=== PATIENT | female | born 1990 | race Caucasian/White ===

== ENCOUNTER 2021-04-21 16:12 | Emergency (ER) | payer OTHER ==
[~2021-04-21] VITALS: Ht 139.7 cm; Wt 50.0 kg
[2021-04-21 17:40] VITALS: BP 114/76
== END 2021-04-21 17:40 | disposition home or self-care (01) ==
LOC: ER 16:12
DX: S39.012A Strain of muscle, fascia and tendon of lower back, initial encounter (principal); S50.11XA Contusion of right forearm, initial encounter; S20.211A Contusion of right front wall of thorax, initial encounter; R51.9 Headache, unspecified; V43.62XA Car passenger injured in collision with other type car in traffic accident, initial encounter; Y93.89 Activity, other specified; Y92.488 Other paved roadways as the place of occurrence of the external cause; Y99.8 Other external cause status

== ENCOUNTER 2021-06-13 08:46 | Emergency (ER) | payer OTHER ==
[~2021-06-13] VITALS: Ht 157.5 cm; Wt 50.8 kg
[2021-06-13 09:19] LABS: ABSOLUTE NEUTROPHILS 3.5 thou/uL (1.4-8.2); EOSINOPHILS 2.6 % (0.0-3.0); HEMATOCRIT 35.6 % (37.0-47.0); HEMOGLOBIN 11.9 gm/dL (12.0-15.0); LYMPHOCYTES 44.6 % (24.0-44.0); MCH 27.4 pg (26.0-34.0); MCHC 33.4 g/dL (28.0-37.0); MCV 82.1 fL (80.0-100.0); MONOCYTES 7.5 % (1.0-8.0); PLATELET COUNT 345 thou/uL (150-400); POLYS 44.3 % (36.0-66.0); RBC 4.34 mil/uL (4.20-5.00); RDW 13.5 % (10.5-14.5)
[2021-06-13 09:31] LABS: ANION GAP 4 mmol/L (7-16); APTT 24.7 Seconds (24.5-32.8); BUN 9 mg/dL (7-18); CALCIUM 8.8 mg/dL (8.5-10.1); CHLORIDE 105 mmol/L (98-107); CO2 28 mmol/L (21-32); CREATININE 0.8 mg/dL (0.6-1.0); GLUCOSE 91 mg/dL (74-106); POTASSIUM 4.1 mmol/L (3.5-5.1); PROTIME 10.2 Seconds (9.3-11.4); SODIUM 137 mmol/L (136-145)
[2021-06-13 09:35] LABS: ALBUMIN 3.5 g/dL (3.4-5.0); SGOT 24 U/L (15-37); SGPT 21 U/L (14-59); TOTAL BILIRUBIN 0.4 mg/dL (0.2-1.0); TROPONIN-I <0.06 ng/mL (<0.06)
--- NOTE | 2021-06-13 10:36 | EKG ---
[address] [address] ELECTROCARDIOGRAM REPORT Name: SHERLYN HILL Room #: [facility]#: [id number] Admission: 06/13/21 Attend Phys: Discharge: Date of : 88 Report #: [id number] [facility] ED Test Date: 2021-06-13 Test Time: 09:00:45 Pat Name: SHERLYN HILL Department: Room: Gender: F Java Lead: : 1990 Requested By: Miki Gray Order Number: [id number] MD: Damian Norman Measurements Intervals [place] Rate: 70 P: 11 MN: 130 QRS: 33 QRSD: 80 T: 3 QT: 355 QTc: 383 Interpretive Statements Sinus rhythm Low voltage, precordial leads No previous ECG available for comparison Electronically Signed On 06-13-2021 10:36:04 CDT by Damian Norman [email or web address] <ELECTRONICALLY SIGNED> By: Damian Norman MD, [facility] 06/13/21 1036 0900 09 Damian Norman MD, FACC /EPI
[2021-06-13 13:22] VITALS: BP 98/62
--- NOTE | 2021-06-14 09:35 | HC ---
[facility] [place] [address] CONSULTATION Name: SHERLYN HILL Room #: DEP Damian#: [id number] Admission: 06/13/21 Attend Phys: Discharge: 06/13/21 Date of : 88 Report #: [id number] THIS REPORT FOR: cc: SOFIYA - Family physician unknown SOFIYA - Family physician unknown Alek Vyas MD ~ DATE OF SERVICE: 06/13/2021 HISTORY OF PRESENT ILLNESS: This is a 30-year-old female patient who was seen by me because she presented to Emergency Room with severe left chest pain as well as right-sided weakness. The history was difficult because of the language barrier, but the patient's was there to translate and the history was confirmed as summarized in Emergency Room physician's note. She had pain in the chest around 1:00 a.m. and right-sided weakness about 4:00 a.m. There was some facial numbness and right upper and right lower extremity weakness along with that. She was outside the window for TPA because of the type of onset was at 4:00 a.m. when I was called and Emergency Room physician wanted to do CT angiogram of the chest to rule out pulmonary embolism. I asked him to talk to the radiologist and they said if we knew to do the CT angiogram of the head and neck as well as chest. The patient will require 2 dosages of the dye, and therefore, I suggested checking with MRI and see if they had some time to do the MRI. They were able to accommodate this patient for MRI, but unfortunately the computers broke down and they could not put it on the PAX. Because of that, the radiologist could not read it. I went and looked at the film myself and there was no acute abnormality. Subsequently, radiologist looked at it and final report is the same. REVIEW OF SYSTEMS: The best 14-point review of system was, I carried out, the patient has had these onset of symptoms. She does not have any symptoms of anxiety or depression in the past, but the chest pain was on the left side and weakness was on the right side and the chest pain was severe. PAST MEDICAL HISTORY: Negative for these kind of symptoms. FAMILY HISTORY: Unremarkable the best I can tell for any early age stroke. SOCIAL HISTORY: She is . is the one who translated, but still there was a lot of problem because of language barrier. PHYSICAL EXAMINATION: Pretty limited. When I examined her, she was alert. She was able to follow simple commands when translated. It is difficult for me to tell speech because of the language barrier, but the says she can talk but is slow. Cranial nerve examination I carried out and the best I can tell, there is no hemianopsia. I do not see any gross facial palsy either, but she is definitely weak in the right upper and right lower extremity and strength is only about 3/5. She did reasonably well with position sense. Both plantars [facility] [address] [place] [address] CONSULTATION Name: SHERLYN HILL GROVES Room #: DEP Damian#: [id number] Admission: 06/13/21 Attend Phys: Discharge: 06/13/21 Date of : 88 Report #: [id number] appear to be downgoing. Reflexes are symmetrical. There is no meningeal sign. I could not look at the fundus. There is no evidence of atrial fibrillation. LABORATORY DATA: Indicated a sodium of 137. Hemoglobin is 11.9. Her test was negative. IMPRESSION: When I saw the patient, it was not possible to tell whether the patient had any stroke which will need any intervention or not. I discussed with the patient through her that she needs further workup. The first workup she needed was MRI of the brain and MRA of the head to see if she needs any intervention. Fortunately, space was available for the MRI of the brain and MRI of the head in this patient and we were able to get that done and that was unremarkable. I had talked to the patient that she needs further workup. I was going to go ahead and do a stat carotid Doppler in this patient and then she will need an echocardiogram to look for any patent foramen ovale as well as the other workup. Consult did not show up under my list. Therefore, I called the Emergency Room back and told them that the consult is not showing up on my list and I cannot put the orders until it shows under my list and I would like to get some more workup done like carotid Doppler stat and echocardiogram tomorrow. They tell me, this patient left against medical advice about 2 hours ago. This is in spite of the fact that I have made it very clear to them that she needs further workup from right-sided weakness perspective and I am sure spring encaser would have done some workup from the cardiac perspective in spite of her young age. This patient was competent to make a decision and appeared to follow commands in spite of the language barrier and that was my impression, was definitely capable of making the decision and more competent and they decide to leave against medical advice. Language barrier was a problem, but whatever I can tell, she appeared to be competent to make a decision and I was told that she left AMA about 2 hours ago and I am not sure what I can do because the patient has already gone against medical advice. Thank you very much for this referral. Addendum. This addendum is being added at the time of signing this note. I called the patient's from my office phone and told him that her neurological testing is not complete and she needs further testing which were which I had discussed with them and was planning to do He said he does not want any further testing done. I told them that if he changes his mind he should come to emergency room and we will do rest of the testing which I had recommended to them when he was here with his and recommended to them again and told him very clearly that the testing was not complete when they left AGAINST MEDICAL ADVICE as I understand <ELECTRONICALLY SIGNED> By: Alek Vyas MD 06/14/21 0935 [id number] Alek Vyas MD /nt
== END 2021-06-13 13:26 | disposition left against medical advice (07) ==
LOC: ER 08:46
PROVIDERS: Emergency Medicine
DX: R20.0 Anesthesia of skin (principal); R07.89 Other chest pain